=== PATIENT | female | born 1980 | race Caucasian/White ===

== ENCOUNTER 2017-07-17 14:25 | Emergency (ER) | payer OTHER ==
[~2017-07-17] VITALS: Ht 149.9 cm; Wt 80.8 kg
[~2017-07-17 14:25] MED LIST: NORCO 5/3251 TABLET PO
[2017-07-17 14:28] VITALS: BP 135/80
[2017-07-17] MEDS ORDERED: NAPROSYN500 MG PO (16:35)
== END 2017-07-17 16:51 | disposition home or self-care (01) ==
LOC: EME 14:25
DX: S93.402A Sprain of unspecified ligament of left ankle, initial encounter (principal); W01.0XXA Fall on same level from slipping, tripping and stumbling without subsequent striking against object, initial encounter; Y92.008 Other place in unspecified non-institutional (private) residence as the place of occurrence of the external cause; M19.072 Primary osteoarthritis, left ankle and foot; M17.12 Unilateral primary osteoarthritis, left knee; M77.32 Calcaneal spur, left foot; Z91.048 Other nonmedicinal substance allergy status
CPT/HCPCS: 73590; 73610; 73630; 99281; 99284